=== PATIENT | female | born 1955 | race Caucasian/White ===

== ENCOUNTER → 2024-02-20 13:09 | Outpatient (REF) | payer MEDICARE, SELFPAY | LOC: HWRAD 13:09 | PROVIDERS: ATTENDING PHYSICIAN Obstetrics & Gynecology Gynecology; FAMILY PHYSICIAN Nurse Practitioner Adult Health | DX: N95.0 Postmenopausal bleeding (principal) | CPT/HCPCS: 76830; 76856 ==